=== PATIENT | male | born 1950 | race Caucasian/White ===

== ENCOUNTER 2020-12-30 14:54 | Emergency (ER) | payer MEDICARE ==
[~2020-12-30] VITALS: Ht 170.2 cm; Wt 95.3 kg
[2020-12-30 16:26] LABS: BASOPHILS % 1.1 % (0.0-1.0); EOSINOPHILS # (AUTO) 0.2 (0.0-0.4); EOSINOPHILS % 4.6 % (0.0-6.0); HEMATOCRIT 43.4 % (38.2-49.6); HEMOGLOBIN 14.8 g/dL (14.0-18.0); LYMPHOCYTES # (AUTO) 0.9 (1.0-3.2); LYMPHOCYTES % 25.2 % (18.0-39.1); MEAN CORPUSCULAR HGB CONC 34.1 g/dL (31-35); MEAN CORPUSCULAR VOLUME 93.7 fL (81-99); MONOCYTES # (AUTO) 0.3 (0.2-0.8); MONOCYTES % 8.6 % (4.4-11.3); NEUTROPHILS # (AUTO) 2.2 (2.1-6.9); PLATELET COUNT 97 x10e3/uL (140-360); RED BLOOD COUNT 4.63 x10e6/uL (4.3-5.7); RED CELL DISTRIBUTION WIDTH 13.4 % (11.7-14.4)
[2020-12-30 16:39] LABS: CLARITY,URINE CLEAR (CLEAR); COLOR,URINE YELLOW (YELLOW); LEUKOCYTE ESTERASE ,URINE NEGATIVE (NEGATIVE); NITRITE,URINE NEGATIVE (NEGATIVE); PROTEIN,URINE DIPSTICK 1+ (NEGATIVE)
[2020-12-30 16:40] LABS: ALANINE AMINOTRANSFERASE 23 IU/L (0-55); ALBUMIN/GLOBULIN RATIO 1.1 (0.8-2.0); ALKALINE PHOSPHATASE 75 IU/L (40-150); ANION GAP 11.6 mmol/L (8-16); BLOOD UREA NITROGEN 17 mg/dL (7-26); BUN/CREATININE RATIO 24 (6-25); CALCIUM 7.3 mg/dL (8.4-10.2); CARBON DIOXIDE 21 mmol/L (22-29); CHLORIDE 112 mmol/L (98-107); EST GLOMERULAR FILTRATION RATE > 60 ML/MIN (60-); GLUCOSE 68 mg/dL (74-118); POTASSIUM 3.6 mmol/L (3.5-5.1); SODIUM 141 mmol/L (136-145)
[2020-12-30 16:40] LABS: KETONES,URINE TRACE (NEGATIVE); URINE UROBILINOGEN 2 mg/dL (0.2 - 1)
[2020-12-30 16:44] LABS: BACTERIA,URINE FEW /HPF; RBC,URINE 0-5 /HPF (0-5)
[2020-12-30 20:13] VITALS: BP 148/89
== END 2020-12-30 20:15 | disposition home or self-care (01) ==
LOC: ER 15:55
DX: N48.9 Disorder of penis, unspecified (principal); I50.9 Heart failure, unspecified; Z87.820 Personal history of traumatic brain injury; Z95.810 Presence of automatic (implantable) cardiac defibrillator
CPT/HCPCS: 36415; 80053; 81001; 82948; 85025; 87086; 99284

== ENCOUNTER 2021-04-22 16:56 | Inpatient (IN) | payer MEDICARE, OTHER ==
[~2021-04-22] VITALS: Ht 170.2 cm; Wt 95.3 kg
[2021-04-22 18:01] LABS: BASOPHILS % 0.1 % (0.0-1.0); HEMATOCRIT 41.9 % (38.2-49.6); HEMOGLOBIN 14.4 g/dL (14.0-18.0); LYMPHOCYTES # (AUTO) 0.3 (1.0-3.2); LYMPHOCYTES % 4.8 % (18.0-39.1); MEAN CORPUSCULAR HEMOGLOBIN 31.7 pg (28-32); MEAN CORPUSCULAR HGB CONC 34.4 g/dL (31-35); MEAN CORPUSCULAR VOLUME 92.3 fL (81-99); MONOCYTES # (AUTO) 0.2 (0.2-0.8); MONOCYTES % 2.8 % (4.4-11.3); NEUTROPHILS # (AUTO) 6.5 (2.1-6.9); NEUTROPHILS % 91.5 % (38.7-80.0); PLATELET COUNT 135 x10e3/uL (140-360); RED BLOOD COUNT 4.54 x10e6/uL (4.3-5.7); RED CELL DISTRIBUTION WIDTH 12.9 % (11.7-14.4)
[2021-04-22 18:17] LABS: CLARITY,URINE SL CLOUDY (CLEAR); COLOR,URINE AMBER (YELLOW); KETONES,URINE TRACE (NEGATIVE); LEUKOCYTE ESTERASE ,URINE NEGATIVE (NEGATIVE); NITRITE,URINE NEGATIVE (NEGATIVE); PROTEIN,URINE DIPSTICK 2+ (NEGATIVE); URINE UROBILINOGEN >=8 mg/dL (0.2 - 1)
[2021-04-22 18:22] LABS: ALBUMIN 2.9 g/dL (3.5-5.0); ALBUMIN/GLOBULIN RATIO 0.8 (0.8-2.0); ANION GAP 13.5 mmol/L (8-16); CALCIUM 8.3 mg/dL (8.4-10.2); CREATININE, SERUM 0.84 mg/dL (0.72-1.25); POTASSIUM 3.5 mmol/L (3.5-5.1)
[2021-04-22 18:29] LABS: CREATINE KINASE MB 0.3 ng/mL (0-5.0)
[2021-04-22 18:34] LABS: WBC,URINE (MAN) 0-5 /HPF (0-5)
[2021-04-22 18:35] LABS: BACTERIA,URINE RARE /HPF
[2021-04-22] MEDS ORDERED: ACETAMINOPHEN 325 MG TAB PO PRN (19:00)
[2021-04-22] MEDS ORDERED: SODIUM CHLORIDE FLUSH 10 ML SYR INJ PRN (19:00)
[2021-04-22] MEDS ORDERED: ASPIRIN 81 MG CHEW TAB PO ONE (19:00)
[2021-04-22] MEDS ORDERED: SODIUM CHLORIDE 0.9% IV ONE (20:00)
[2021-04-22] MEDS ORDERED: REMDESIVIR IV ONE (20:00)
[2021-04-22] MEDS: CEFTRIAXONE 2 GM in SODIUM CHLORIDE 0.9% 100 ML IV SCH (20:29)
[2021-04-22] MEDS ORDERED: SODIUM CHLORIDE 0.9% 100 ML ONE (22:27)
[2021-04-22] MEDS: ENOXAPARIN 30 MG/0.3 ML SYR SC SCH (22:29)
[2021-04-23] MEDS: ENOXAPARIN 30 MG/0.3 ML SYR SC SCH (09:15)
[2021-04-23] MEDS: ZINC SULFATE 50 MG CAP PO SCH (09:15)
[2021-04-23] MEDS: ASCORBIC ACID 500 MG TAB PO SCH ×2 (09:15→18:14)
[2021-04-23 11:13] LABS: ALBUMIN 2.7 g/dL (3.5-5.0); ALBUMIN/GLOBULIN RATIO 0.8 (0.8-2.0); ANION GAP 12.6 mmol/L (8-16); CALCIUM 8.1 mg/dL (8.4-10.2); CREATININE, SERUM 0.77 mg/dL (0.72-1.25); POTASSIUM 3.6 mmol/L (3.5-5.1)
[2021-04-23 11:43] LABS: CREATINE KINASE MB 0.8 ng/mL (0-5.0)
[2021-04-23 12:10] LABS: HEMATOCRIT 41.2 % (38.2-49.6); HEMOGLOBIN 14.1 g/dL (14.0-18.0); LYMPHOCYTES # (AUTO) 0.4 (1.0-3.2); LYMPHOCYTES % 5.4 % (18.0-39.1); MEAN CORPUSCULAR HEMOGLOBIN 31.5 pg (28-32); MEAN CORPUSCULAR HGB CONC 34.2 g/dL (31-35); MEAN CORPUSCULAR VOLUME 92.2 fL (81-99); MONOCYTES # (AUTO) 0.3 (0.2-0.8); MONOCYTES % 3.9 % (4.4-11.3); NEUTROPHILS % 89.8 % (38.7-80.0); PLATELET COUNT 135 x10e3/uL (140-360); RED BLOOD COUNT 4.47 x10e6/uL (4.3-5.7); RED CELL DISTRIBUTION WIDTH 12.6 % (11.7-14.4)
[2021-04-23] MEDS: REMDESIVIR 100MG 100 MG in SODIUM CHLORIDE 0.9% 100 ML IV SCH (13:45)
[2021-04-23] MEDS: CEFTRIAXONE 2 GM in SODIUM CHLORIDE 0.9% 100 ML IV SCH (18:14)
[2021-04-23 18:56] LABS: CREATINE KINASE MB 0.9 ng/mL (0-5.0)
[2021-04-23 20:49] LABS: INR 2.51; PROTHROMBIN TIME 27.5 seconds (11.9-14.5)
[2021-04-23 20:50] LABS: PARTIAL THROMBOPLASTIN TIME 47.6 seconds (23.8-35.5)
[2021-04-24] MEDS: ASCORBIC ACID 500 MG TAB PO SCH ×2 (08:51→17:11)
[2021-04-24] MEDS: ZINC SULFATE 50 MG CAP PO SCH (08:51)
[2021-04-24 10:02] LABS: HEMATOCRIT 39.1 % (38.2-49.6); HEMOGLOBIN 13.9 g/dL (14.0-18.0); LYMPHOCYTES # (AUTO) 0.5 (1.0-3.2); LYMPHOCYTES % 9.6 % (18.0-39.1); MEAN CORPUSCULAR HEMOGLOBIN 31.8 pg (28-32); MEAN CORPUSCULAR HGB CONC 35.5 g/dL (31-35); MEAN CORPUSCULAR VOLUME 89.5 fL (81-99); MONOCYTES # (AUTO) 0.4 (0.2-0.8); MONOCYTES % 7.4 % (4.4-11.3); NEUTROPHILS # (AUTO) 4.1 (2.1-6.9); PLATELET COUNT 143 x10e3/uL (140-360); RED BLOOD COUNT 4.37 x10e6/uL (4.3-5.7); RED CELL DISTRIBUTION WIDTH 12.7 % (11.7-14.4)
[2021-04-24 10:26] LABS: ALBUMIN 2.5 g/dL (3.5-5.0); ALBUMIN/GLOBULIN RATIO 0.7 (0.8-2.0); CALCIUM 7.9 mg/dL (8.4-10.2); CREATININE, SERUM 0.74 mg/dL (0.72-1.25)
[2021-04-24] MEDS ORDERED: POTASSIUM CHLORIDE 20 MEQ TAB CR PO ONE (11:30)
[2021-04-24 13:25] VITALS: BP 120/71
[2021-04-24] MEDS: REMDESIVIR 100MG 100 MG in SODIUM CHLORIDE 0.9% 100 ML IV SCH (13:59)
[2021-04-24] MEDS ORDERED: SODIUM CHLORIDE 0.9% 250ML 250 ML ONE (14:06)
[2021-04-24] MEDS ORDERED: ZOLOFT50 MG (15:12)
[2021-04-24] MEDS ORDERED: AMIODARONE HCL200 MG PO (15:12)
[2021-04-24] MEDS ORDERED: DEXAMETHASONE4 MG PO (15:12)
[2021-04-24] MEDS ORDERED: LISINOPRIL2.5 MG PO (15:12)
[2021-04-24] MEDS ORDERED: DIGOXIN125 MCG PO (15:12)
[2021-04-24] MEDS ORDERED: METOPROLOL TART25 MG PO (15:12)
[2021-04-24] MEDS ORDERED: KEPPRA500 MG/5 M PO (15:12)
[2021-04-24] MEDS ORDERED: TRAZODONE HCL100 MG PO (15:12)
[2021-04-24] MEDS ORDERED: WARFARIN SODIUM2 MG PO (15:12)
[2021-04-24] MEDS ORDERED: WARFARIN SODIUM3 MG PO (15:12)
[2021-04-24] MEDS ORDERED: NIACIN100 MG PO (15:12)
[2021-04-24] MEDS ORDERED: METHOCARBAMOL750 MG PO (15:12)
[2021-04-24] MEDS: CEFTRIAXONE 2 GM in SODIUM CHLORIDE 0.9% 100 ML IV SCH (17:15)
[2021-04-24 19:59] VITALS: BP 164/89
[2021-04-24 21:00] VITALS: BP 164/89
[2021-04-25] VITALS (8 sets, daily range): BP systolic 128–156; BP diastolic 80–99
[2021-04-25 06:23] LABS: EOSINOPHILS % 0.5 % (0.0-6.0); HEMATOCRIT 38.1 % (38.2-49.6); HEMOGLOBIN 13.3 g/dL (14.0-18.0); LYMPHOCYTES # (AUTO) 0.6 (1.0-3.2); MEAN CORPUSCULAR HEMOGLOBIN 31.7 pg (28-32); MEAN CORPUSCULAR HGB CONC 34.9 g/dL (31-35); MEAN CORPUSCULAR VOLUME 90.9 fL (81-99); MONOCYTES # (AUTO) 0.4 (0.2-0.8); MONOCYTES % 10.9 % (4.4-11.3); NEUTROPHILS # (AUTO) 2.8 (2.1-6.9); NEUTROPHILS % 71.3 % (38.7-80.0); PLATELET COUNT 139 x10e3/uL (140-360); RED BLOOD COUNT 4.19 x10e6/uL (4.3-5.7)
[2021-04-25 06:48] LABS: ALBUMIN 2.4 g/dL (3.5-5.0); ALBUMIN/GLOBULIN RATIO 0.8 (0.8-2.0); ANION GAP 12.1 mmol/L (8-16); CALCIUM 7.6 mg/dL (8.4-10.2); CREATININE, SERUM 0.71 mg/dL (0.72-1.25); POTASSIUM 3.1 mmol/L (3.5-5.1)
[2021-04-25] MEDS: DIGOXIN 0.125 MG TAB PO SCH (08:45)
[2021-04-25] MEDS: METOPROLOL TARTRATE 25 MG TAB PO SCH ×2 (08:45→17:13)
[2021-04-25] MEDS: AMIODARONE HCL 200 MG TAB PO SCH (08:45)
[2021-04-25] MEDS: ASCORBIC ACID 500 MG TAB PO SCH ×2 (08:46→17:14)
[2021-04-25] MEDS: LISINOPRIL 2.5 MG TAB PO SCH ×2 (08:46→17:14)
[2021-04-25] MEDS: SERTRALINE HCL 50 MG TAB PO SCH (08:46)
[2021-04-25] MEDS: ZINC SULFATE 50 MG CAP PO SCH (08:46)
[2021-04-25] MEDS ORDERED: WARFARIN SOD 2 MG TAB PO SCH (09:00)
[2021-04-25] MEDS ORDERED: LEVETIRACETAM 500 MG TAB PO SCH (09:00)
[2021-04-25 11:30] LABS: INR 1.37; PROTHROMBIN TIME 17.1 seconds (11.9-14.5)
[2021-04-25] MEDS: REMDESIVIR 100MG 100 MG in SODIUM CHLORIDE 0.9% 100 ML IV SCH (16:36)
[2021-04-25] MEDS ORDERED: WARFARIN SOD 5 MG TAB PO ONE (17:00)
[2021-04-25] MEDS: LEVETIRACETAM ORAL SOLUTION 500 MG/5 ML SOLN PO SCH (17:13)
[2021-04-25] MEDS: CEFTRIAXONE 2 GM in SODIUM CHLORIDE 0.9% 100 ML IV SCH (17:34)
[2021-04-25] MEDS: TRAZODONE HCL 50 MG TAB PO SCH (20:38)
[2021-04-26] VITALS (7 sets, daily range): BP systolic 84–114; BP diastolic 50–83
[2021-04-26 06:59] LABS: INR 1.38; PROTHROMBIN TIME 17.2 seconds (11.9-14.5)
[2021-04-26 07:49] LABS: ALBUMIN 2.5 g/dL (3.5-5.0); ALBUMIN/GLOBULIN RATIO 0.8 (0.8-2.0); ANION GAP 14.1 mmol/L (8-16); CALCIUM 7.9 mg/dL (8.4-10.2); CREATININE, SERUM 0.78 mg/dL (0.72-1.25); POTASSIUM 3.1 mmol/L (3.5-5.1)
[2021-04-26 08:20] LABS: EOSINOPHILS # (AUTO) 0.1 (0.0-0.4); EOSINOPHILS % 1.3 % (0.0-6.0); HEMATOCRIT 42.3 % (38.2-49.6); HEMOGLOBIN 14.6 g/dL (14.0-18.0); LYMPHOCYTES # (AUTO) 0.8 (1.0-3.2); LYMPHOCYTES % 16.1 % (18.0-39.1); MEAN CORPUSCULAR HEMOGLOBIN 31.7 pg (28-32); MEAN CORPUSCULAR HGB CONC 34.5 g/dL (31-35); MONOCYTES # (AUTO) 0.5 (0.2-0.8); MONOCYTES % 9.8 % (4.4-11.3); NEUTROPHILS # (AUTO) 3.8 (2.1-6.9); NEUTROPHILS % 71.8 % (38.7-80.0); PLATELET COUNT 148 x10e3/uL (140-360); RED CELL DISTRIBUTION WIDTH 13.1 % (11.7-14.4)
[2021-04-26] MEDS: LEVETIRACETAM ORAL SOLUTION 500 MG/5 ML SOLN PO SCH ×2 (08:27→16:13)
[2021-04-26] MEDS: AMIODARONE HCL 200 MG TAB PO SCH (08:27)
[2021-04-26] MEDS: DIGOXIN 0.125 MG TAB PO SCH (08:28)
[2021-04-26] MEDS: ZINC SULFATE 50 MG CAP PO SCH ×2 (08:29)
[2021-04-26] MEDS: ASCORBIC ACID 500 MG TAB PO SCH ×2 (08:29→16:14)
[2021-04-26] MEDS: METOPROLOL TARTRATE 25 MG TAB PO SCH ×2 (08:31→17:21)
[2021-04-26] MEDS: SERTRALINE HCL 50 MG TAB PO SCH (08:33)
[2021-04-26] MEDS: LISINOPRIL 2.5 MG TAB PO SCH ×2 (08:34→17:00)
[2021-04-26] MEDS: ENOXAPARIN INJ 80 MG/0.8 ML SYR SC SCH ×2 (11:16→21:15)
[2021-04-26] MEDS: REMDESIVIR 100MG 100 MG in SODIUM CHLORIDE 0.9% 100 ML IV SCH (13:46)
[2021-04-26] MEDS ORDERED: WARFARIN SOD 2 MG TAB PO ONE (17:00)
[2021-04-26] MEDS: CEFTRIAXONE 2 GM in SODIUM CHLORIDE 0.9% 100 ML IV SCH (17:21)
[2021-04-26] MEDS: TRAZODONE HCL 50 MG TAB PO SCH (21:15)
[2021-04-27] VITALS (7 sets, daily range): BP systolic 79–117; BP diastolic 47–96
[2021-04-27 07:04] LABS: INR 1.99; PROTHROMBIN TIME 22.9 seconds (11.9-14.5)
[2021-04-27] MEDS: AMIODARONE HCL 200 MG TAB PO SCH (08:31)
[2021-04-27] MEDS: ASCORBIC ACID 500 MG TAB PO SCH ×2 (08:31→17:18)
[2021-04-27] MEDS: METOPROLOL TARTRATE 25 MG TAB PO SCH ×2 (08:31→17:25)
[2021-04-27] MEDS: ZINC SULFATE 50 MG CAP PO SCH ×2 (08:31→08:33)
[2021-04-27] MEDS: LEVETIRACETAM ORAL SOLUTION 500 MG/5 ML SOLN PO SCH ×2 (08:31→17:04)
[2021-04-27] MEDS: SERTRALINE HCL 50 MG TAB PO SCH (08:31)
[2021-04-27] MEDS: ENOXAPARIN INJ 80 MG/0.8 ML SYR SC SCH (08:31)
[2021-04-27] MEDS: DIGOXIN 0.125 MG TAB PO SCH (08:31)
[2021-04-27] MEDS: LISINOPRIL 2.5 MG TAB PO SCH ×2 (08:34→17:26)
[2021-04-27 10:08] LABS: BASOPHILS % 0.2 % (0.0-1.0); EOSINOPHILS # (AUTO) 0.1 (0.0-0.4); EOSINOPHILS % 1.1 % (0.0-6.0); HEMOGLOBIN 13.7 g/dL (14.0-18.0); LYMPHOCYTES # (AUTO) 0.7 (1.0-3.2); LYMPHOCYTES % 13.3 % (18.0-39.1); MEAN CORPUSCULAR HEMOGLOBIN 32.2 pg (28-32); MEAN CORPUSCULAR HGB CONC 35.1 g/dL (31-35); MEAN CORPUSCULAR VOLUME 91.8 fL (81-99); MONOCYTES # (AUTO) 0.7 (0.2-0.8); MONOCYTES % 13.7 % (4.4-11.3); NEUTROPHILS # (AUTO) 3.8 (2.1-6.9); NEUTROPHILS % 69.7 % (38.7-80.0); PLATELET COUNT 148 x10e3/uL (140-360); RED BLOOD COUNT 4.25 x10e6/uL (4.3-5.7); RED CELL DISTRIBUTION WIDTH 13.3 % (11.7-14.4)
[2021-04-27 10:23] LABS: ALBUMIN 2.2 g/dL (3.5-5.0); ALBUMIN/GLOBULIN RATIO 0.7 (0.8-2.0); ANION GAP 12.1 mmol/L (8-16); CALCIUM 7.6 mg/dL (8.4-10.2); CREATININE, SERUM 0.9 mg/dL (0.72-1.25); POTASSIUM 3.1 mmol/L (3.5-5.1)
[2021-04-27] MEDS ORDERED: POTASSIUM CHLORIDE 20 MEQ TAB CR PO ONE (13:00)
[2021-04-27] MEDS: WARFARIN SOD 2 MG TAB PO SCH (17:04)
[2021-04-27] MEDS: CEFTRIAXONE 2 GM in SODIUM CHLORIDE 0.9% 100 ML IV SCH (18:20)
[2021-04-27] MEDS: ENOXAPARIN 30 MG/0.3 ML SYR SC SCH (21:17)
[2021-04-27] MEDS: TRAZODONE HCL 50 MG TAB PO SCH (21:17)
[2021-04-28 00:52] VITALS: BP 87/58
[2021-04-28 04:00] VITALS: BP 97/60
[2021-04-28 07:55] LABS: INR 2.3; PROTHROMBIN TIME 25.7 seconds (11.9-14.5)
[2021-04-28] MEDS: LEVETIRACETAM ORAL SOLUTION 500 MG/5 ML SOLN PO SCH ×2 (08:32→17:00)
[2021-04-28] MEDS: METOPROLOL TARTRATE 25 MG TAB PO SCH ×2 (08:32→17:01)
[2021-04-28] MEDS: DEXAMETHASONE SOD PHOS 10 MG/1 ML VIAL IV SCH (08:32)
[2021-04-28] MEDS: DIGOXIN 0.125 MG TAB PO SCH (08:32)
[2021-04-28] MEDS: AMIODARONE HCL 200 MG TAB PO SCH (08:32)
[2021-04-28] MEDS: LISINOPRIL 2.5 MG TAB PO SCH ×2 (08:33→17:01)
[2021-04-28] MEDS: ASCORBIC ACID 500 MG TAB PO SCH ×2 (08:33→17:01)
[2021-04-28] MEDS: SERTRALINE HCL 50 MG TAB PO SCH (08:34)
[2021-04-28] MEDS: ZINC SULFATE 50 MG CAP PO SCH ×2 (08:34)
[2021-04-28 09:39] VITALS: BP 99/65
[2021-04-28] MEDS: ENOXAPARIN 30 MG/0.3 ML SYR SC SCH (09:57)
[2021-04-28 10:05] LABS: ALBUMIN 2.1 g/dL (3.5-5.0); ALBUMIN/GLOBULIN RATIO 0.6 (0.8-2.0); ANION GAP 10.6 mmol/L (8-16); CALCIUM 7.5 mg/dL (8.4-10.2); CREATININE, SERUM 0.82 mg/dL (0.72-1.25); POTASSIUM 3.6 mmol/L (3.5-5.1)
[2021-04-28 10:31] LABS: BASOPHILS % 0.2 % (0.0-1.0); EOSINOPHILS # (AUTO) 0.1 (0.0-0.4); EOSINOPHILS % 1.1 % (0.0-6.0); HEMATOCRIT 38.4 % (38.2-49.6); HEMOGLOBIN 12.8 g/dL (14.0-18.0); LYMPHOCYTES # (AUTO) 0.6 (1.0-3.2); LYMPHOCYTES % 11.9 % (18.0-39.1); MEAN CORPUSCULAR HEMOGLOBIN 31.5 pg (28-32); MEAN CORPUSCULAR HGB CONC 33.3 g/dL (31-35); MEAN CORPUSCULAR VOLUME 94.6 fL (81-99); MONOCYTES # (AUTO) 0.8 (0.2-0.8); MONOCYTES % 14.5 % (4.4-11.3); NEUTROPHILS # (AUTO) 3.8 (2.1-6.9); NEUTROPHILS % 71.5 % (38.7-80.0); PLATELET COUNT 125 x10e3/uL (140-360); RED BLOOD COUNT 4.06 x10e6/uL (4.3-5.7); RED CELL DISTRIBUTION WIDTH 13.7 % (11.7-14.4)
[2021-04-28] MEDS: WARFARIN SOD 2 MG TAB PO SCH (17:00)
[2021-04-28 20:50] VITALS: BP 109/72
[2021-04-28] MEDS: TRAZODONE HCL 50 MG TAB PO SCH (20:50)
[2021-04-29] VITALS (8 sets, daily range): BP systolic 101–127; BP diastolic 60–87
[2021-04-29 05:24] LABS: INR 3.57; PROTHROMBIN TIME 36.2 seconds (11.9-14.5)
[2021-04-29 06:46] LABS: HEMATOCRIT 36.9 % (38.2-49.6); HEMOGLOBIN 12.3 g/dL (14.0-18.0); LYMPHOCYTES # (AUTO) 0.4 (1.0-3.2); MEAN CORPUSCULAR HEMOGLOBIN 31.5 pg (28-32); MEAN CORPUSCULAR HGB CONC 33.3 g/dL (31-35); MEAN CORPUSCULAR VOLUME 94.6 fL (81-99); MONOCYTES # (AUTO) 0.5 (0.2-0.8); MONOCYTES % 9.2 % (4.4-11.3); NEUTROPHILS # (AUTO) 4.4 (2.1-6.9); NEUTROPHILS % 82.1 % (38.7-80.0); PLATELET COUNT 146 x10e3/uL (140-360); RED CELL DISTRIBUTION WIDTH 13.6 % (11.7-14.4)
[2021-04-29 06:58] LABS: ALBUMIN 2.1 g/dL (3.5-5.0); ALBUMIN/GLOBULIN RATIO 0.6 (0.8-2.0); ANION GAP 13.1 mmol/L (8-16); CREATININE, SERUM 0.87 mg/dL (0.72-1.25); POTASSIUM 4.1 mmol/L (3.5-5.1)
[2021-04-29] MEDS: ZINC SULFATE 50 MG CAP PO SCH (08:01)
[2021-04-29] MEDS: DIGOXIN 0.125 MG TAB PO SCH (08:02)
[2021-04-29] MEDS: METOPROLOL TARTRATE 25 MG TAB PO SCH ×2 (08:02→17:02)
[2021-04-29] MEDS: ASCORBIC ACID 500 MG TAB PO SCH ×2 (08:02→16:28)
[2021-04-29] MEDS: LISINOPRIL 2.5 MG TAB PO SCH ×2 (08:02→17:02)
[2021-04-29] MEDS: LEVETIRACETAM ORAL SOLUTION 500 MG/5 ML SOLN PO SCH ×2 (08:03→16:28)
[2021-04-29] MEDS: AMIODARONE HCL 200 MG TAB PO SCH (08:03)
[2021-04-29] MEDS: SERTRALINE HCL 50 MG TAB PO SCH (08:03)
[2021-04-29] MEDS: DEXAMETHASONE SOD PHOS 10 MG/1 ML VIAL IV SCH (08:04)
[2021-04-29] MEDS: TRAZODONE HCL 50 MG TAB PO SCH (20:35)
[2021-04-30] VITALS (9 sets, daily range): BP systolic 103–126; BP diastolic 60–88
[2021-04-30 05:06] LABS: INR 4.59
[2021-04-30 05:09] LABS: PROTHROMBIN TIME 44.1 seconds (11.9-14.5)
[2021-04-30] MEDS: DIGOXIN 0.125 MG TAB PO SCH (09:41)
[2021-04-30] MEDS: METOPROLOL TARTRATE 25 MG TAB PO SCH ×2 (09:41→16:55)
[2021-04-30] MEDS: DEXAMETHASONE SOD PHOS 10 MG/1 ML VIAL IV SCH (09:41)
[2021-04-30] MEDS: LEVETIRACETAM ORAL SOLUTION 500 MG/5 ML SOLN PO SCH ×2 (09:41→16:55)
[2021-04-30] MEDS: AMIODARONE HCL 200 MG TAB PO SCH (09:41)
[2021-04-30] MEDS: ASCORBIC ACID 500 MG TAB PO SCH ×2 (09:42→16:56)
[2021-04-30] MEDS: LISINOPRIL 2.5 MG TAB PO SCH ×2 (09:42→16:56)
[2021-04-30] MEDS: ZINC SULFATE 50 MG CAP PO SCH (09:42)
[2021-04-30] MEDS: SERTRALINE HCL 50 MG TAB PO SCH (09:42)
[2021-04-30] MEDS: TRAZODONE HCL 50 MG TAB PO SCH (20:38)
[2021-05-01 01:42] VITALS: BP 126/82
[2021-05-01 05:10] LABS: INR 4.82
[2021-05-01 05:14] LABS: ANION GAP 10.1 mmol/L (8-16); CALCIUM 7.6 mg/dL (8.4-10.2); CREATININE, SERUM 0.97 mg/dL (0.72-1.25); POTASSIUM 4.1 mmol/L (3.5-5.1)
[2021-05-01 05:15] LABS: PROTHROMBIN TIME 45.8 seconds (11.9-14.5)
[2021-05-01 05:20] VITALS: BP 141/93
[2021-05-01] MEDS ORDERED: PHYTONADIONE 10 MG/ML AMP SC ONE ×2 (05:30→12:30)
[2021-05-01 08:00] VITALS: BP 132/96
[2021-05-01] MEDS: AMIODARONE HCL 200 MG TAB PO SCH (08:51)
[2021-05-01] MEDS: ASCORBIC ACID 500 MG TAB PO SCH (08:51)
[2021-05-01] MEDS: LEVETIRACETAM ORAL SOLUTION 500 MG/5 ML SOLN PO SCH (08:51)
[2021-05-01] MEDS: DEXAMETHASONE SOD PHOS 10 MG/1 ML VIAL IV SCH (08:51)
[2021-05-01] MEDS: ZINC SULFATE 50 MG CAP PO SCH (08:51)
[2021-05-01] MEDS: SERTRALINE HCL 50 MG TAB PO SCH (08:52)
[2021-05-01] MEDS: LISINOPRIL 2.5 MG TAB PO SCH (08:52)
[2021-05-01] MEDS: METOPROLOL TARTRATE 25 MG TAB PO SCH (08:52)
[2021-05-01] MEDS: DIGOXIN 0.125 MG TAB PO SCH (08:52)
[2021-05-01 09:00] VITALS: BP 132/96
[2021-05-01 11:20] VITALS: BP 109/70
[2021-05-01] MEDS ORDERED: WARFARIN SOD 3 MG TAB PO SCH (17:00)
== END 2021-05-01 16:57 | DRG 177 ==
LOC: ER 17:31 → ERHOLD 19:01 → IMCU 04-24 12:49
PROVIDERS: ADMIT Family Medicine; ATTEND Family Medicine
PROC: XW033E5 Introduction of Remdesivir Anti-infective into Peripheral Vein, Percutaneous Approach, New Technology Group 5 (ICD-10-PCS; 2021-04-22)
PROC: 3E0333Z Introduction of Anti-inflammatory into Peripheral Vein, Percutaneous Approach (ICD-10-PCS; principal; 2021-04-28)
DX: U07.1 COVID-19 (principal); J12.82 Pneumonia due to coronavirus disease 2019; J96.01 Acute respiratory failure with hypoxia; E44.0 Moderate protein-calorie malnutrition; I48.91 Unspecified atrial fibrillation; G40.909 Epilepsy, unspecified, not intractable, without status epilepticus; I69.320 Aphasia following cerebral infarction; Z87.820 Personal history of traumatic brain injury; Z95.810 Presence of automatic (implantable) cardiac defibrillator; Z91.048 Other nonmedicinal substance allergy status; Z79.01 Long term (current) use of anticoagulants; E66.9 Obesity, unspecified; R53.81 Other malaise; T45.515A Adverse effect of anticoagulants, initial encounter; Y92.230 Patient room in hospital as the place of occurrence of the external cause; Z68.32 Body mass index [BMI] 32.0-32.9, adult; E87.6 Hypokalemia
CPT/HCPCS: 36415; 71045; 80048; 80053; 80162; 81001; 82550; 82553; 83735; 84484; 85025; 85610; 85730; 87040; 93005; 99284; J0456; J0696; J1100; J1650; J3430; J7050; U0002